=== PATIENT | female | born 1980 | race Caucasian/White ===

== ENCOUNTER 2025-01-09 06:55 | Day surgery (SDC) | payer OTHER ==
[~2025-01-09] VITALS: Ht 172.7 cm; Wt 68.0 kg
[~2025-01-09 06:55] MED LIST: LACTATED RINGER'S 1,000 ML IV SCH
[2025-01-09] MEDS ORDERED: HEParin SOD (PORCINE) 5,000 UNIT/ML SDV SUB-Q SCH (07:00)
[2025-01-09] MEDS ORDERED: IBLOOD GLUCOSE TEST STRIP 1 EA TEST VI PRN ×2 (07:00→11:30)
[2025-01-09] MEDS ORDERED: LIDOCAINE HCL 1% 5 ML SDV INJ ONE (07:00)
[2025-01-09] MEDS ORDERED: CEFAZOLIN SODIUM 2 GM in SODIUM CHLORIDE 0.9% 100 ML IV SCH (07:00)
[2025-01-09 07:09] VITALS: BP 102/67
[2025-01-09] MEDS ORDERED: SEVOFLURANE 250 ML BTL INH ONE (08:40)
[2025-01-09] MEDS ORDERED: LIDOCAINE HCL 2% 5 ML SDV ONE ×2 (08:56→10:18)
[2025-01-09] MEDS ORDERED: SUGAMMADEX SODIUM 200 MG/2 ML ML ONE ×2 (08:56→10:18)
[2025-01-09] MEDS ORDERED: ROCURONIUM BROMIDE 50 MG/5 ML SYR ONE ×3 (08:56→13:54)
[2025-01-09] MEDS ORDERED: KETOROLAC TROMETHAMINE 30 MG/ML VIAL ONE (08:57)
[2025-01-09] MEDS ORDERED: DEXAMETHASONE SOD PHOS 4 MG/ML VIAL ONE (08:57)
[2025-01-09] MEDS ORDERED: ACETAMINOPHEN 1,000 MG/100 ML VIAL ONE (08:57)
[2025-01-09] MEDS ORDERED: MIDAZOLAM HCL 2 MG/2 ML VIAL ONE (09:07)
[2025-01-09] MEDS ORDERED: fentaNYL citrate 100 MCG/2 ML VIAL ONE ×2 (09:08→10:18)
[2025-01-09] MEDS ORDERED: LIDOCAINE HCL 1% 30 ML SDV ONE (10:18)
[2025-01-09] MEDS ORDERED: KETAMINE in NS 50 MG/5 ML SYR ONE (10:45)
[2025-01-09] MEDS ORDERED: fentaNYL citrate 50 MCG/ML SDV IV PRN (11:30)
[2025-01-09] MEDS ORDERED: NALOXONE HCL 0.4 MG SYR IV PRN ×2 (11:30→16:15)
[2025-01-09] MEDS ORDERED: HYDROmorphone HCL 1 MG/ML SYR IV PRN (11:30)
--- NOTE | 2025-01-09 11:31 | NUR ---
1130 PT UPDATED ON WAIT DUE TO EMERGENCY SURGERY THAT BUMPPED PT. PT SEEMS UNDERSTANDING, PT SPOUSE STATES IRRITATION. EXPLAINED THAT IT WAS NOT A PLANNED SURGERY AND THAT IT IS EMERGENT.
[2025-01-09] MEDS ORDERED: LACTATED RINGER'S 1,000 ML IV ONE (13:05)
[2025-01-09] MEDS ORDERED: FLUORESCEIN SODIUM 500 MG/5 ML ML ONE (15:08)
[2025-01-09] MEDS ORDERED: TRANEXAMIC ACID 1,000 MG/10 ML AMP ONE (15:13)
--- NOTE | 2025-01-09 15:45 | NUR ---
01/09/25 1545 Katheryn Bland LE 1532: PT ARRIVES TO PACU AWAKE, CRYING, AND NAUSEATED. SHE IS CONNECTED TO THE MONITORS. REPORT RECEIVED FROM COAL TOWER OPERATOR. LE 1540: NEW LEADS APPLIED TO BE ABLE TO GET A RHYTHM CHECK. LE 1544: LAB IS AT THE BEDSIDE TO COLLECT LABS. PATIENT SERVICE ASSOCIATE ATTEMPTED TO START 2ND IV WITHOUT SUCCESS DUE TO PT BEING CLAMPED DOWN.
[2025-01-09 16:04] LABS: MCH 29.3 PG (25.6-32.2); MCHC 34.3 g/dL (32.2-35.5); MCV 85.4 fL (79.4-94.8); RBC 4.03 M/uL (3.93-5.22)
[2025-01-09] MEDS ORDERED: SIMETHICONE 80 MG CHEW PO PRN (16:15)
[2025-01-09] MEDS ORDERED: LACTATED RINGER'S 1,000 ML IV SCH (16:15)
[2025-01-09] MEDS ORDERED: PROCHLORPERAZINE EDISYLATE 10 MG/2 ML VIAL IV PRN (16:15)
[2025-01-09] MEDS ORDERED: MAGNESIUM HYDROXIDE/AL HYDROX 30 ML CUP PO PRN (16:15)
[2025-01-09] MEDS ORDERED: OXYCODONE/APAP 5/325 TAB PO PRN (16:15)
[2025-01-09] MEDS ORDERED: FAMOTIDINE 20 MG/ 2 ML VIAL IV PRN (16:15)
[2025-01-09 16:17] LABS: INR 1.12 (0.80-1.30); PROTIME 13.6 Sec (11.2-14.2)
--- NOTE | 2025-01-09 16:38 | NUR ---
PATIENT IN BED, AT BEDSIDE. REPORT RECEIVED FROM DAY SURGERY RN. PATIENT TRANSFERRED TO MED SURG BED. VITAL SIGNS COMPLETED.
[2025-01-09 16:39] VITALS: BP 110/66
[2025-01-09] MEDS ORDERED: SIMETHICONE 80 MG CHEW PO SCH (17:00)
--- NOTE | 2025-01-09 17:32 | NUR ---
PATIENT IN BED, FAMILY AT BEDSIDE. CALL LIGHT AND PERSONAL BELONGINGS IN REACH. PRN MEDICATION ADMINISTERED PER PATIENT REQUEST. SCHEDULED MEDICATION ADMINISTERED PER EMAR ORDER. IV FLUID INFUSING WNL, SCDS IN PLACE. PATIENT DENIES CONCERNS.
[2025-01-09 17:35] VITALS: BP 98/55
[2025-01-09 18:33] VITALS: BP 95/62
--- NOTE | 2025-01-09 19:22 | NUR ---
GOT REPORT FROM DAYSHIFT NURSE.
[2025-01-09 19:33] VITALS: BP 98/54
--- NOTE | 2025-01-09 19:41 | NUR ---
PATIENT JUST FINISHED DINNER, TOLERATED WELL. NO NAUSEA AT THIS TIME. PATIENT HAS IV FLUIDS RUNNING AT 125 LR, IV SITE WNL. AT BEDSIDE WITH PATIENT. SHE IS CURRENTLY ON RA. PAIN 04/23.
[2025-01-09 20:56] VITALS: BP 103/56
--- NOTE | 2025-01-09 21:19 | NUR ---
PATIENT UP AND WALKED 2 LAPS AROUND MED SURG. PATIENT CONTROLLED AT 3/10. PATIENT ATE CHICKEN NOODLE SOUP FROM [employer]. NO NAUSEA. PATIENT DID NOT HAVE ANY LIGHTHEADEDNESS WITH WALKING THIS TIME. VITALS TAKEN, MEDICATION GIVEN AND PATIENT GOING TO GET SOME REST. UMBILICAL LAP SITE DRESSING CHANGED, SLIGHT DRAINAGE. AWARE. PLACED NEW NON STICK OVER BANDAID.
[2025-01-09] MEDS ORDERED: IBUPROFEN 800 MG TAB PO SCH (22:00)
--- NOTE | 2025-01-10 00:10 | NUR ---
INTO CHECK ON PATIENT. NEW DRESSING IS DRY AND CLEAN, NO DRAINAGE. PATIENT PAIN IS STILL 3/10. SLIGHT ACHE IS ALL PER PATIENT. DENIES ANY CARES AT THIS TIME. IV IS SL.
--- NOTE | 2025-01-10 01:09 | NUR ---
REPORT RECEIVED FROM AGNES VELASQUEZ. pt RESTING IN THE BED. BOARD UPDATED. pt DENIES ANY NEEDS AT THIS TIME. CALL LIGHT WITHIN REACH.
[2025-01-10 01:47] VITALS: BP 97/50
[2025-01-10 01:50] VITALS: BP 97/50
--- NOTE | 2025-01-10 01:51 | NUR ---
FOUNTAIN DISPENSER OBTAINED VITALS AND I&O. JACKSON BAG EMPTIED. PT STATES NO NEEDS AT THIS TIME. CALL LIGHT WITHIN REACH.
[2025-01-10 02:04] VITALS: BP 97/50
--- NOTE | 2025-01-10 03:36 | NUR ---
pt RESTING IN THE BED. pt DENIES ANY NEEDS AT THIS TIME. CALL LIGHT WITHIN REACH.
[2025-01-10 05:31] LABS: MCH 29.4 PG (25.6-32.2); MCHC 34.0 g/dL (32.2-35.5); MCV 86.5 fL (79.4-94.8); RBC 3.03 M/uL (3.93-5.22)
[2025-01-10 06:11] VITALS: BP 93/48
--- NOTE | 2025-01-10 07:05 | NUR ---
REPORT RECEIVED FROM RON CRUZ. PT SITTING UP IN BED, NO REQUESTS AT THIS TIME. CALL LIGHT WITHIN REACH.
--- NOTE | 2025-01-10 08:07 | NUR ---
PT CURRENTLY UP AMBULATING HALLWAYS WITH AT SIDE.
--- NOTE | 2025-01-10 08:09 | NUR ---
PATIENT IN BED AT THIS TIME. CONTAMINATION CONSULTANT CHARTED HOURLY ROUNDS. CALL LIGHT WITHIN REACH, NO FURTHER NEEDS.
[2025-01-10 09:20] VITALS: BP 98/54
--- NOTE | 2025-01-15 13:07 | PATH ---
[facility] [address] [place] [address], [place] [address] Signed SPECIMEN(S): A UTERUS, CERVIX, FIBROIDS, TUBES SPECIMEN SOURCE: A. UTERUS, CERVIX, FIBROIDS, TUBES [id number] CLINICAL HISTORY: Fibroid uterus FINAL PATHOLOGIC DIAGNOSIS: Uterus, cervix, fibroids, bilateral fallopian tubes: - Scant endometrium, negative for hyperplasia or atypia. - Benign myometrial leiomyoma. - Benign endocervix. - Benign bilateral oviducts. JVR MICROSCOPIC EXAMINATION: Histologic sections of all submitted blocks are examined by light microscopy. These findings, together with the gross examination, support the pathologic diagnosis. GROSS DESCRIPTION: The specimen, labeled and designated "Justen, uterus, cervix, fibroids, bilateral fallopian tubes," is received in formalin and consists of a 607g previously opened uterus with attached cervix and detached bilateral fallopian tubes that is 11.2 cm from cervix to fundus, 23.2 cm from cornu to cornu, and 6.2 cm from anterior to posterior. The uterine serosa is pope-purple, smooth and glistening with no adhesions. The attached cervix is 3.6 cm in length and 4.3 cm in diameter. The ectocervix is 3.7 x 2.9 cm, pope-white, smooth and glistening. The external os is circular, patent and has a 0.7 cm diameter. The endocervical canal is 3.2 cm in length and has pope-pink herringbone patterned mucosa. The endometrial cavity is 3.1 x 2.2 cm. There is a 6.9 x 6.1 x 5.8 white, bulging, and whorled intramural mass near the fundus of the uterus. The mass is grossly confined to the myometrium and does not invade the endometrial cavity. There are smooth walled cystic spaces filled with yellow serous material that make up 15% of the cut surface of the mass. There is also a 4 x 3.2 x 1.9 cm area of central degeneration within the mass. The PATIENT NAME: MILTON CASTILLO PATHOLOGY DATE OF : 76 REPORT #: [id number] PHYSICIAN: STEFANIE ACEVES PCP: BRENT RODRIGUES PA-C REPORT IS CONFIDENTIAL AND NOT TO BE RELEASED WITHOUT AUTHORIZATION [facility] [address] [place], [place] [address] Signed endometrium is red-brown and smooth with an average thickness of 0.1 cm. The myometrium is pope-brown and firm with an average thickness of 2.8 cm. Also received free-floating within the container are 2 fallopian tubes with fimbriated ends that are arbitrarily assigned fallopian tube 1 and fallopian tube 2. Fallopian tube 1 is 4.2 x 1.3 x 0.4 cm with attached fimbria. The serosa is pope-purple, smooth and glistening. Near the fimbriated end of the fallopian tube there is a 1.1 x 1 x 0.7 cm paratubal cyst that is filled with yellow lobulated homogenous tissue. The average cyst wall is 0.1 cm, no papillary excrescences are grossly identified. Sectioning reveals a patent lumen. No other lesions grossly identified. Fallopian tube 2 is 4.6 x 1.3 x 0.6 cm with attached fimbria. The serosa is pope-purple and dusky with no lesions grossly identified. Sectioning reveals a patent lumen. No lesions grossly identified. Sample Maker Hand sections are submitted in cassettes A1-A9. Cassette Summary: (A1) anterior cervix (A2) posterior cervix (A3-A4) anterior uterus, mass (A5) posterior uterus, mass (A6) anterior uterus, full-thickness section (A7) posterior uterus, full-thickness section (A8) fallopian tube 1, patient services representative cross-sections to include paratubal cyst and entire fimbria (A9) fallopian tube 2, patient services representative cross-sections and entire fimbria EO (under the direct supervision of a pathologist) The Gross Description was prepared using a voice recognition system. The report was reviewed for accuracy; however, sound-alike word errors, addition and/or deletions may occur. If there is any question about this report, please contact Client Services. The specimen, labeled and designated "Justen, uterus, cervix, fibroids, bilateral fallopian tubes," is received in formalin and consists of a 607g previously opened uterus with attached cervix and detached bilateral fallopian tubes that is 11.2 cm from cervix to fundus, 23.2 cm from cornu to cornu, and 6.2 cm from anterior to posterior. The uterine serosa is pope-purple, smooth and glistening with no adhesions. The attached cervix is 3.6 cm in length and 4.3 cm in diameter. The ectocervix is 3.7 x 2.9 cm, pope-white, smooth and glistening. The external os is circular, patent and has a PATIENT NAME: MILTON CASTILLO PATHOLOGY DATE OF : 76 REPORT #: [id number] PHYSICIAN: STEFANIE PATHOLOGY PCP: BRENT RODRIGUES PA-C REPORT IS CONFIDENTIAL AND NOT TO BE RELEASED WITHOUT AUTHORIZATION [address], [place] [address] Signed 0.7 cm diameter. The endocervical canal is 3.2 cm in length and has pope-pink herringbone patterned mucosa. The endometrial cavity is 3.1 x 2.2 cm. There is a 6.9 x 6.1 x 5.8 white, bulging, and whorled intramural mass near the fundus of the uterus. The mass is grossly confined to the myometrium and does not invade the endometrial cavity. There are smooth walled cystic spaces filled with yellow serous material that make up 15% of the cut surface of the mass. There is also a 4 x 3.2 x 1.9 cm area of central degeneration within the mass. The endometrium is red-brown and smooth with an average thickness of 0.1 cm. The myometrium is pope-brown and firm with an average thickness of 2.8 cm. Also received free-floating within the container are 2 fallopian tubes with fimbriated ends that are arbitrarily assigned fallopian tube 1 and fallopian tube 2. Fallopian tube 1 is 4.2 x 1.3 x 0.4 cm with attached fimbria. The serosa is pope-purple, smooth and glistening. Near the fimbriated end of the fallopian tube there is a 1.1 x 1 x 0.7 cm paratubal cyst that is filled with yellow lobulated homogenous tissue. The average cyst wall is 0.1 cm, no papillary excrescences are grossly identified. Sectioning reveals a patent lumen. No other lesions grossly identified. Fallopian tube 2 is 4.6 x 1.3 x 0.6 cm with attached fimbria. The serosa is pope-purple and dusky with no lesions grossly identified. Sectioning reveals a patent lumen. No lesions grossly identified. Cassette Summary: (A1) anterior cervix (A2) posterior cervix (A3-A4) anterior uterus, mass (A5) posterior uterus, mass (A6) anterior uterus, full-thickness section (A7) posterior uterus, full-thickness section (A8) fallopian tube 1, patient services representative cross-sections to include paratubal cyst and entire fimbria (A9) fallopian tube 2, patient services representative cross-sections and entire fimbria EO (under the direct supervision of a pathologist) The Gross Description was prepared using a voice recognition system. The report was reviewed for accuracy; however, sound-alike word errors, addition and/or deletions may occur. If there is any question about this report, please contact Client Services. ADDITIONAL NOTES: PATIENT NAME: MILTON CASTILLO PATHOLOGY DATE OF : 76 REPORT #: [id number] PHYSICIAN: STEFANIE ACEVES PCP: BRENT RODRIGUES PA-C REPORT IS CONFIDENTIAL AND NOT TO BE RELEASED WITHOUT AUTHORIZATION [facility] [address] [place] [id number] Signed Immunohistochemical and/or in situ hybridization studies if performed in this case included appropriate positive controls that reacted as expected. This test was developed and its performance characteristics determined by [facility]. It has not been cleared or approved by the U.S. Food and Drug Administration. The FDA has determined that such clearance or approval is not necessary. This test is used for clinical purposes. It should not be regarded as investigational or for research. [facility] is certified under the Clinical Laboratory Improvement Amendments of 1988 (CLIA) as qualified to perform high complexity clinical laboratory testing. PERFORMING LABORATORY: Technical component was performed by [facility], [address] [place] [id number] (CLIA# [id number]). Professional interpretation was performed by [facility] [place] - [address] [place] [address] (CLIA#: [id number]). Diagnostician: Gume Caba MD Pathologist Electronically Signed 01/15/2025 Copies: ~ PATIENT NAME: MILTON CASTILLO PATHOLOGY DATE OF : 76 REPORT #: [id number] PHYSICIAN: [facility] PCP: BRENT RODRIGUES PA-C REPORT IS CONFIDENTIAL AND NOT TO BE RELEASED WITHOUT AUTHORIZATION
== END 2025-01-10 09:25 | disposition home or self-care (01) ==
LOC: DS 06:55 → OPS 06:55 → DS 07:30 → OPS 09:30 → DS 09:30 → MS 16:24 → OPS 01-10 09:25
PROVIDERS: ATTEND Obstetrics & Gynecology
PROC: 0UT74ZZ Resection of Bilateral Fallopian Tubes, Percutaneous Endoscopic Approach (ICD-10-PCS; 2025-01-09)
PROC: 0UT94ZZ Resection of Uterus, Percutaneous Endoscopic Approach (ICD-10-PCS; principal; 2025-01-09 09:30)
DX: D25.1 Intramural leiomyoma of uterus (principal)
CPT/HCPCS: 00840; 36415; 85027; 85384; 85610; 85730; 94762; 96360; 96361; A9270; J0131; J0688; J1100; J1644; J1885; J2003; J2250; J2405; J2704; J3010; J3490; J7121